=== PATIENT | male | born 1995 ===

== ENCOUNTER 2025-08-02 12:00 | Inpatient (IN) | payer OTHER ==
[~2025-08-02] VITALS: Ht 193 cm; Wt 127.0 kg
[2025-08-08] MEDS ORDERED: BUPIVACAINE HCL 30 ML VIAL IJ ONE (15:00)
[2025-08-08] MEDS ORDERED: CEFTRIAXONE SODIUM 2,000 MG VIAL IV ONE (15:00)
[2025-08-08] MEDS ORDERED: LIDOCAINE HCL 1%/EPINEPHRINE 20ML VIAL IJ ONE (15:00)
[2025-08-08] MEDS ORDERED: METRONIDAZOLE/SODIUM CHLORIDE 500 MG/100 ML PIGGYBACK IV ONE (15:00)
[2025-08-08] MEDS ORDERED: 0.9 % SODIUM CHLORIDE 1,000 ML IV SCH (20:45)
[2025-08-08] MEDS ORDERED: ONDANSETRON HCL 2 MG/ML VIAL IV PRN (20:45)
[2025-08-08] MEDS ORDERED: OxyCODONE HCL 5 MG TABLET (ROXICODONE) PO PRN (20:45)
[2025-08-08] MEDS ORDERED: MORPHINE SULFATE 4 MG/ML CARTRIDGE IV PRN (20:45)
[2025-08-08] MEDS ORDERED: DEXTROSE 50 % IN WATER 0.5 G/ML DISP.SYRIN IV PRN (20:45)
[2025-08-08] MEDS ORDERED: FAMOTIDINE/PF 20 MG/2 ML VIAL IV PUSH SCH (21:00)
[2025-08-08] MEDS ORDERED: CELECOXIB 200 MG CAPSULE PO SCH (21:00)
[2025-08-08 23:32] LABS: BASO % 0.1 % (0.1-1.2); EOS # 0.00 (0.04-0.54); EOS % 0.0 % (0.7-7.0); LYMPH # 0.81 (1.18-3.74); LYMPH % 3.4 % (19.3-53.1); MEAN PLATELET VOLUME 11.00 fl (9.4-12.4); MONO # 1.23 (0.24-0.82); MONO % 5.1 % (4.7-12.5); NEUT # 21.74 (1.56-6.13); NEUT % 91.0 % (34.0-71.1); RED CELL DISTRIBUTION WIDTH 14.0 % (11.6-14.4)
[2025-08-08 23:39] LABS: BUN CREA RATIO 9.0 (7.0-25.0); CREATININE SERUM 1.0 mg/dL (0.70-1.30); GFR 88.34; GLUCOSE FASTING 146.0 mg/dL (65-100); OSMOLALITY SERUM 279.0 MOSM/KG (275-295)
[2025-08-09] MEDS ORDERED: METRONIDAZOLE/SODIUM CHLORIDE 500 MG/100 ML PIGGYBACK IV SCH (01:00)
[2025-08-09] MEDS ORDERED: GABAPENTIN 300 MG CAPSULE PO SCH (01:00)
[2025-08-09] MEDS ORDERED: ACETAMINOPHEN 500 MG GEL..CAP PO SCH (02:00)
[2025-08-09 08:00] VITALS: BP 138/90; O2SAT 95
[2025-08-09] MEDS ORDERED: HYOSCYAMINE SULFATE 0.125 MG TAB.SUBL SL SCH (09:00)
[2025-08-09 11:25] LABS: BASO % 0.1 % (0.1-1.2); EOS # 0.00 (0.04-0.54); EOS % 0.0 % (0.7-7.0); LYMPH # 1.09 (1.18-3.74); LYMPH % 6.1 % (19.3-53.1); MEAN PLATELET VOLUME 10.50 fl (9.4-12.4); MONO # 1.39 (0.24-0.82); MONO % 7.7 % (4.7-12.5); NEUT # 15.38 (1.56-6.13); NEUT % 85.7 % (34.0-71.1); RED CELL DISTRIBUTION WIDTH 13.9 % (11.6-14.4)
[2025-08-09 12:03] LABS: ALT/SGPT 33.0 U/L (12-78); AST/SGOT 29.0 U/L (15-37); BILIRUBIN TOTAL 0.82 mg/dL (0.3-1.2); BUN CREA RATIO 7.0 (7.0-25.0); CREATININE SERUM 0.75 mg/dL (0.70-1.30); GFR 123.12; GLOBULINA 4.0 G/DL (2.4-3.5); GLUCOSE FASTING 118.0 mg/dL (65-100); OSMOLALITY SERUM 278.0 MOSM/KG (275-295)
[2025-08-09 16:00] VITALS: BP 131/89; O2SAT 98
[2025-08-09] MEDS ORDERED: ENOXAPARIN SODIUM 40 MG/0.4 ML SYRINGE SUBCUTANEO SCH (17:00)
[2025-08-09] MEDS ORDERED: MEROPENEM 500 MG/VIAL VIAL IV SCH (18:00)
[2025-08-09] MEDS ORDERED: VANCOMYCIN HCL 5 MG/ML REDILUIDO IV SCH (21:00)
[2025-08-09 22:30] LABS: URINE APPEARANCE Clear; URINE BILIRRUBIN Negative (NEGATIVE); URINE BLOOD Trace; URINE COLOR Yellow; URINE GLUCOSE Negative (NEGATIVE); URINE KETONE Negative (NEGATIVE); URINE LEUKOCYTE Negative; URINE NITRATE Negative; URINE PROTEIN Negative (NEGATIVE); URINE UROBILINOGEN 0.2 E.U./dl
[2025-08-09 22:35] LABS: URINE BACTERIA 2.3 uL (0.0-1933); URINE CAST 0.00 uL (0.0-1.40); URINE EPITHELIAL CELLS 0.9 uL (0.0-38.8); URINE RBC 0.7 uL (0.0-20.8); URINE WBC 0.4 uL (0.0-23.2)
[2025-08-09 23:55] VITALS: BP 128/74; O2SAT 99
[2025-08-10 07:57] LABS: BASO % 0.3 % (0.1-1.2); EOS # 0.04 (0.04-0.54); EOS % 0.3 % (0.7-7.0); LYMPH # 1.55 (1.18-3.74); LYMPH % 12.2 % (19.3-53.1); MEAN PLATELET VOLUME 10.80 fl (9.4-12.4); MONO # 1.14 (0.24-0.82); MONO % 9.0 % (4.7-12.5); NEUT # 9.85 (1.56-6.13); NEUT % 77.8 % (34.0-71.1); RED CELL DISTRIBUTION WIDTH 14.2 % (11.6-14.4)
[2025-08-10 08:00] VITALS: BP 122/85; O2SAT 98
[2025-08-10 08:51] LABS: ALT/SGPT 29.0 U/L (12-78); AST/SGOT 29.0 U/L (15-37); BILIRUBIN TOTAL 0.71 mg/dL (0.3-1.2); BUN CREA RATIO 8.0 (7.0-25.0); CREATININE SERUM 0.78 mg/dL (0.70-1.30); GFR 117.68; GLOBULINA 3.8 G/DL (2.4-3.5); GLUCOSE FASTING 85.0 mg/dL (65-100); OSMOLALITY SERUM 278.0 MOSM/KG (275-295)
[2025-08-10] MEDS ORDERED: ENOXAPARIN SODIUM 40 MG/0.4 ML SYRINGE SUBCUTANEO SCH (09:00)
[2025-08-10] MEDS ORDERED: POTASSIUM PHOS,M-BASIC-D-BASIC 3 MM/ML VIAL IV NR (11:00)
[2025-08-10 16:00] VITALS: BP 128/81; O2SAT 97
[2025-08-11 00:49] VITALS: BP 116/75; O2SAT 100
[2025-08-11 08:00] VITALS: BP 125/86; O2SAT 98
[2025-08-11] MEDS ORDERED: AMINO ACIDS 1 EACH TABLET PO SCH (17:00)
[2025-08-11 18:07] VITALS: BP 121/82; O2SAT 99
[2025-08-11 19:24] VITALS: O2SAT 99
[2025-08-12 02:10] VITALS: BP 117/76; O2SAT 98
[2025-08-12 05:16] VITALS: O2SAT 94
[2025-08-12 06:23] LABS: BASO % 0.4 % (0.1-1.2); EOS # 0.60 (0.04-0.54); EOS % 4.6 % (0.7-7.0); LYMPH # 2.64 (1.18-3.74); LYMPH % 20.3 % (19.3-53.1); MEAN PLATELET VOLUME 10.60 fl (9.4-12.4); MONO # 0.92 (0.24-0.82); MONO % 7.1 % (4.7-12.5); NEUT # 8.74 (1.56-6.13); NEUT % 67.1 % (34.0-71.1); RED CELL DISTRIBUTION WIDTH 13.8 % (11.6-14.4)
[2025-08-12 07:02] LABS: ALT/SGPT 24.0 U/L (12-78); AST/SGOT 17.0 U/L (15-37); BILIRUBIN TOTAL 0.49 mg/dL (0.3-1.2); BUN CREA RATIO 13.0 (7.0-25.0); CREATININE SERUM 0.8 mg/dL (0.70-1.30); GFR 114.29; GLOBULINA 4.0 G/DL (2.4-3.5); GLUCOSE FASTING 78.0 mg/dL (65-100); OSMOLALITY SERUM 279.0 MOSM/KG (275-295)
[2025-08-12] MEDS ORDERED: TRAM1TAB98 PO (07:29)
[2025-08-12] MEDS ORDERED: HYOSCYAMINE0.125 M1 SL (07:29)
[2025-08-12] MEDS ORDERED: AMOX1TAB5 PO (07:30)
[2025-08-12] MEDS ORDERED: PEPCID AC20 MG PO (07:30)
[2025-08-12 08:00] VITALS: BP 120/82; O2SAT 95
[2025-08-12 09:23] VITALS: O2SAT 90
== END 2025-08-12 13:03 | disposition home or self-care (01) | DRG 329 ==
LOC: O/R 08-08 09:00 → SURH 08-08 09:00
PROVIDERS: Internal Medicine Infectious Disease; ADMIT Surgery; ATTEND Surgery
PROC: 0DBP4ZZ Excision of Rectum, Percutaneous Endoscopic Approach (ICD-10-PCS; 2025-08-08)
PROC: 0DQ84ZZ Repair Small Intestine, Percutaneous Endoscopic Approach (ICD-10-PCS; 2025-08-08)
PROC: 0DJD8ZZ Inspection of Lower Intestinal Tract, Via Natural or Artificial Opening Endoscopic (ICD-10-PCS; 2025-08-08)
PROC: 0W9F4ZZ Drainage of Abdominal Wall, Percutaneous Endoscopic Approach (ICD-10-PCS; 2025-08-08)
PROC: 8E0W4CZ Robotic Assisted Procedure of Trunk Region, Percutaneous Endoscopic Approach (ICD-10-PCS; 2025-08-08)
PROC: 4A033R1 Measurement of Arterial Saturation, Peripheral, Percutaneous Approach (ICD-10-PCS; 2025-08-08)
PROC: 0DTN4ZZ Resection of Sigmoid Colon, Percutaneous Endoscopic Approach (ICD-10-PCS; principal; 2025-08-08 10:00)
PROC: 4A12X4Z Monitoring of Cardiac Electrical Activity, External Approach (ICD-10-PCS; 2025-08-09)
PROC: BW2GZZZ Computerized Tomography (CT Scan) of Pelvic Region (ICD-10-PCS; 2025-08-09)
DX: K57.20 Diverticulitis of large intestine with perforation and abscess without bleeding (principal); A41.9 Sepsis, unspecified organism; K91.71 Accidental puncture and laceration of a digestive system organ or structure during a digestive system procedure; R14.0 Abdominal distension (gaseous); R10.32 Left lower quadrant pain; D64.9 Anemia, unspecified; E66.9 Obesity, unspecified; G47.30 Sleep apnea, unspecified; Z68.38 Body mass index [BMI] 38.0-38.9, adult
CPT/HCPCS: 44207; 44213; 45300; 44603; 36600; 82805; 93228; 72192; S2900